=== PATIENT | male | born 1965 | race African-American/Black ===

== ENCOUNTER 2018-01-08 09:34 | Inpatient (IN) | payer OTHER ==
[2018-01-08 10:06] VITALS: BMI 28.4
--- NOTE | 2018-01-08 12:21 | HP ---
CIWA Score - CIWA Score Nausea/Vomitin-Mild Nausea/No Vomiting Muscle Tremors: 1-None Visible, but [place] Anxiety: 2 Agitation: 1-Slight > Activity Paroxysmal Sweats: 2 Orientation: 1-Uncertain about Date Tacttile Disturbances: 2-Mild Itch/Numbness/Burn Auditory Disturbances: 0-None Visual Disturbances: 0-None Headache: 2-Mild CIWA-Ar Total Score: 12 Admission [facility] - HPI Chief Complaint: Patient presents for ETOH withdrawal symptoms. Allergies/Adverse Reactions: Allergies Allergy/AdvReac Type Severity Reaction Status Date / Time No Known Allergies Allergy Verified 01/08/18 11:51 History of Present Illness: Patient presents for alcohol withdrawal symptoms. Patient started drinking at age 15. Drinks up to 2-3 pints of Vodka daily. Last drink this morning. Patient denies hx of seizures/blackouts. Patient last detox 11/2015 here at [facility]. Longest period of sobriety 6 months. Patient also smokes marijuana and crack/cocaine since age 19, amount varies. Last time he smoked was yesterday. PMH depression and anxiety. Denies SI/HI and suicide attempts. Exam Limitations: No Limitations - Ebola screening Have you traveled outside of the country in the last 21 days: No Have you had contact with anyone from an Ebola affected area: No Have you been sick,other than usual withdrawal symptoms: No Do you have a fever: No - Review of Systems Constitutional: Chills, Night Sweats, Changes in sleep, Unexplained wgt Loss EENT: reports: Nose Congestion Respiratory: reports: Productive cough (+productive cough with yellow sputum x one week. Denies fever and chest pain.) Cardiac: reports: No Symptoms Reported GI: reports: Diarrhea, Nausea, Poor Fluid Intake, Abdominal cramping : reports: No Symptoms Reported Musculoskeletal: reports: Back Pain, Muscle Pain Integumentary: reports: Sweating Neuro: reports: Headache, Numbness, Tingling, Tremors Endocrine: reports: Unexplained Weight Loss Hematology: reports: No Symptoms Reported Psychiatric: reports: Anxious, Depressed Patient History - Patient Medical History Hx Anemia: No Hx Asthma: No Hx Chronic Obstructive Pulmonary Disease (COPD): No Hx Cancer: No Hx Cardiac Disorders: No Hx Congestive Heart Failure: No Hx Hypertension: No Hx Hypercholesterolemia: No Hx Pacemaker: No HX Cerebrovascular Accident: No Hx Seizures: No Hx Dementia: No Hx Diabetes: No Hx Gastrointestinal Disorders: No Hx Liver Disease: No Hx Genitourinary Disorders: No Hx Sexually Transmitted Disorders: No Hx Renal Disease (ESRD): No Hx Thyroid Disease: No Hx Human Immunodeficiency Virus (HIV): No (09/20 last negative) Hx Hepatitis C: No Hx Depression: Yes Hx Suicide Attempt: No (DENIES) Hx Bipolar Disorder: No (PATIENT DENIES) Hx Schizophrenia: No - Patient Surgical History Past Surgical History: Yes Hx Neurologic Surgery: No Hx Cataract Extraction: No Hx Cardiac Surgery: No Hx Lung Surgery: No Hx Breast Surgery: No Hx Breast Biopsy: No Hx Abdominal Surgery: No Hx Appendectomy: Yes (32 years ago) Hx Cholecystectomy: No Hx Genitourinary Surgery: No Hx Orthopedic Surgery: No Anesthesia Reaction: No - PPD History Previous Implant?: Yes Documented Results: Negative w/proof Implanted On Prior [facility] Admission?: Yes Date: 12/02/15 Results: 0 mm PPD to be Administered?: Yes - Smoking Cessation Smoking history: Current every day smoker Have you smoked in the past 12 months: Yes Aproximately how many cigarettes per day: 7 Hx Chewing Tobacco Use: No Initiated information on smoking cessation: Yes 'Breaking Loose' booklet given: 01/08/18 - Substance & Tx. History Hx Alcohol Use: Yes Hx Substance Use: Yes Substance Use Type: Alcohol, Cocaine, Marijuana Hx Substance Use Treatment: Yes - Substances Abused Alcohol Route: Oral Frequency: Daily Amount used: 3 PINTS OF VODKA Age of first use: 15 Date of Last Use: 01/08/18 Crack Route: Smoking Frequency: Daily Amount used: $50 Age of first use: 15 Date of Last Use: 01/08/18 Family Disease History - Family Disease History Family History: Denies Admission Physical Exam BHS - Vital Signs Vital Signs: Vital Signs - 24 hr 01/08/18 10:02 Temperature 97.6 F Pulse Rate 101 H Respiratory 18 Rate Blood Pressure 134/83 - Physical General Appearance: Yes: Disheveled, Tremorous, Sweating, Anxious HEENTM: Yes: EOMI, Hearing grossly Normal, Normocephalic, HAI, Pharynx Normal, Nasal Congestion Respiratory: Yes: Chest Non-Tender, No Respiratory Distress, No Accessory Muscle Use, Rhonchi Neck: Yes: No masses,lesions,Nodules, Supple Breast: Yes: Breast Exam Deferred Cardiology: Yes: Regular Rhythm, Regular Rate, S1, S2 Abdominal: Yes: Normal Bowel Sounds, Non Tender, Soft Genitourinary: Yes: Within Normal Limits Back: Yes: Normal Inspection, Muscle Spasm Musculoskeletal: Yes: full range of Motion, Gait Steady, Back pain, Muscle Pain Extremities: Yes: Normal Inspection, Normal Range of Motion, Non-Tender, Tremors Neurological: Yes: manager ob II-XII NML intact, Alert, Motor Strength 5/5, Numbness, Depressed Affect Integumentary: Yes: Normal Color, Warm, Moist Lymphatic: Yes: Within Normal Limits - Diagnostic (1) Marijuana dependence Current Visit: Yes Status: Chronic (2) Cough Current Visit: Yes Status: Acute (3) Alcohol dependence with uncomplicated withdrawal Current Visit: Yes Status: Acute (4) Nicotine dependence Current Visit: Yes Status: Chronic Qualifiers: Nicotine product type: cigarettes Substance use status: uncomplicated Qualified Code(s): F17.210 - Nicotine dependence, cigarettes, uncomplicated (5) Cocaine dependence, continuous Current Visit: Yes Status: Chronic (6) Bipolar disorder Current Visit: Yes Status: Suspected Qualifiers: Active/Remission status: remission status unspecified Qualified Code(s): F31.9 - Bipolar disorder, unspecified Cleared for Admission [facility] - Detox or Rehab [facility] Level of Care: Medically Managed Detox Regimen/Protocol: Librium [facility] Breath Alcohol Content Breath Alcohol Content: 0.029 Urine Drug Screen - Results Drug Screen Negative: No Urine Drug Screen Results: THC-Marijuana, DEVIN-Cocaine, OPI-Opiates
[2018-01-08] MEDS ORDERED: MAGNESIUM HYDROX 2400MG/30ML ORAL SUSPENSION 30 ML CUP PO PRN (12:35)
[2018-01-08] MEDS ORDERED: MAGNESIUM CITRATE 300 ML BOTTLE PO PRN (12:35)
[2018-01-08] MEDS ORDERED: ACETAMINOPHEN 325 MG TABLET (FP) PO PRN (12:35)
[2018-01-08] MEDS ORDERED: LOPERAMIDE HCL 2 MG CAPSULE PO PRN (12:35)
[2018-01-08] MEDS ORDERED: IBUPROFEN 400 MG TABLET (FP) PO PRN (12:35)
[2018-01-08] MEDS ORDERED: MENTHOL/PHENOL 1 EACH UD MM PRN (12:35)
[2018-01-08] MEDS ORDERED: NICOTINE POLACRILEX 2 MG GUM BUC PRN (12:35)
[2018-01-08] MEDS ORDERED: hydrOXYzine PAMOATE 50 MG CAPSULE (FP) PO PRN (12:35)
[2018-01-08] MEDS ORDERED: P-EPHED 60MG/TRIPROLIDI 2.5MG TABLET PO PRN (12:35)
[2018-01-08] MEDS ORDERED: guaiFENesin/D-METHORPHAN HB 10 ML UNIT-DOSE CUPS PO PRN (12:35)
[2018-01-08] MEDS ORDERED: MAG HYDROX/AL HYDROX/SIMETH 30 ML UNIT-DOSE CUP PO PRN (12:35)
[2018-01-08] MEDS ORDERED: chlordiazePOXIDE HCL 25 MG CAPSULE PO ONE (12:40)
[2018-01-08] MEDS ORDERED: chlordiazePOXIDE HCL 25 MG CAPSULE PO PRN (12:40)
[2018-01-08] MEDS: AZITHROMYCIN 250 MG TABLET PO SCH (13:54)
[2018-01-08 17:36] LABS: URINE APPEARANCE CLEAR; URINE BILIRUBIN NEGATIVE (<2.0 mg/dL); URINE COLOR DKYELLOW; URINE GLUCOSE (UA) NEGATIVE (NEGATIVE); URINE KETONE NEGATIVE (NEGATIVE); URINE LEUK ESTERASE TRACE (NEGATIVE); URINE NITRITE NEGATIVE (NEGATIVE); URINE UROBILINOGEN 4.0 E.U/dl mg/dL (0.2-1.0)
[2018-01-08] MEDS: chlordiazePOXIDE HCL 25 MG CAPSULE PO SCH ×2 (17:46→22:47)
[2018-01-08 18:02] LABS: URINE PROTEIN 1+ (NEGATIVE)
[2018-01-08 18:07] LABS: EPI CELLS RARE /HPF (FEW); URINE BACTERIA RARE /hpf (NONE SEEN); URINE MUCUS RARE
[2018-01-08] MEDS ORDERED: MELATONIN 5 MG TABLETS PO PRN (22:00)
[2018-01-08] MEDS: THIAMINE HCL 100 MG TABLET (FP) PO SCH (22:47)
[2018-01-09] MEDS: chlordiazePOXIDE HCL 25 MG CAPSULE PO SCH ×4 (05:53→22:55)
[2018-01-09] MEDS ORDERED: cloNIDine HCL 0.1 MG TABLET PO ONE (07:44)
--- NOTE | 2018-01-09 08:00 | PN ---
[facility] Progress Note Note: inform by nurse patient bp is 148/103 no chest pain,no sob,no headache no history of hypertension anxious,tremor withdrawal symptom clonidine 0.1 mg po ordered vital signs monitoring continue detox
--- NOTE | 2018-01-09 09:48 | CONSULT ---
[facility] Psychiatric Consult - Data Date of interview: 01/09/18 Admission source: [facility] Identifying data: This is 52 years old male, single, homeless, father of one, unemployed, with no psychiatreic hospitalization history, Patient presents for alcohol withdrawal symptoms. Patient reports abusing Crack, Cannabis and Nicotine as well, seeking for detox. Substance Abuse History: Smoking history: Current every day smoker. Have you smoked in the past 12 months: Yes. Aproximately how many cigarettes per day: 7. Hx Chewing Tobacco Use: No. Initiated information on smoking cessation: Yes. 'Breaking Loose' booklet given: 01/08/18. - Substance & Tx. History. Hx Alcohol Use: Yes. Hx Substance Use: Yes. Substance Use Type: Alcohol, Cocaine , Marijuana. Hx Substance Use Treatment: Yes. - Substances Abused. Alcohol. Route: Oral. Frequency: Daily. Amount used: 3 PINTS OF VODKA. Age of first use: 15. Date of Last Use: 01/08/18. Crack. Route: Smoking. Frequency: Daily. Amount used: $50. Age of first use: 15. Date of Last Use: 01/08/18 Medical History: Denies significant medical issues. Syncope history per computer Psychiatric History: As per computer there is a history of Bipoolar duisordser, patient denies past psychiatric history. Physical/Sexual Abuse/Trauma History: Denies Additional Comment: Observation. Detox Unit Care Protocol. Mental Status Exam - Mental Status Exam Alert and Oriented to: Person Cognitive Function: Fair Patient Appearance: Unkempt Mood: Sad Affect: Flat Patient Behavior: Sedated Speech Pattern: Delayed Voice Loudness: Mildly Soft/Quiet Thought Process: Circumstantial Thought Disorder: Being Controlled Hallucinations: Denies Suicidal Ideation: Denies Homicidal Ideation: Denies Insight/Judgement: Fair Sleep: Difficulty falling asleep Appetite: Weight loss Muscle strength/Tone: Mild Hypotonicity Gait/Station: Shuffling Additional Comments: Observation. Detox Unit Care Protocol. Psychiatric Findings - Problem List ([place] 1, 2,3) (1) Alcohol dependence with uncomplicated withdrawal Current Visit: Yes Status: Acute (2) Cocaine dependence, continuous Current Visit: Yes Status: Chronic (3) Marijuana dependence Current Visit: Yes Status: Chronic (4) Nicotine dependence Current Visit: Yes Status: Chronic Qualifiers: Nicotine product type: cigarettes Substance use status: uncomplicated Qualified Code(s): F17.210 - Nicotine dependence, cigarettes, uncomplicated (5) Bipolar disorder Current Visit: Yes Status: Suspected Qualifiers: Active/Remission status: remission status unspecified Qualified Code(s): F31.9 - Bipolar disorder, unspecified (6) Alcohol dependence, continuous Current Visit: No Status: Acute (7) Syncope Current Visit: No Status: Acute - Initial Treatment Plan Initial Treatment Plan: Observation. Detox Unit Care Protocol.
[2018-01-09 10:34] LABS: HEMATOCRIT 45.5 % (35.4-49); HEMOGLOBIN 15.3 GM/dL (11.7-16.9); MCH 31.8 pg (25.7-33.7); MCHC 33.6 g/dl (32.0-35.9); MEAN CELL VOLUME 94.7 fl (80-96); MEAN PLT VOLUME 7.9 fl (7.5-11.1); PLATELET COUNT 263 K/MM3 (134-434); RDW 13.6 % (11.9-15.9); WHITE BLOOD COUNT 6.1 K/mm3 (4.0-10.0)
[2018-01-09 10:45] LABS: ALBUMIN 3.4 g/dl (3.4-5.0); ANION GAP 8 (8-16); BLOOD UREA NITROGEN 11 mg/dL (7-18); CALCIUM 8.7 mg/dL (8.5-10.1); CHLORIDE 104 mmol/L (98-107); CO2 29 mmol/L (21-32); GLUCOSE,RANDOM 85 mg/dL (74-106); SODIUM 141 mmol/L (136-145)
[2018-01-09] MEDS: PRENATAL VITAMINS W/ FOLIC ACID TABLET (FP) PO SCH (10:45)
[2018-01-09] MEDS: AZITHROMYCIN 250 MG TABLET PO SCH (10:45)
[2018-01-09 10:48] LABS: ALK PHOS 76 U/L (45-117); BILIRUBIN,TOTAL 1.1 mg/dL (0.2-1.0); CREATININE 1.1 mg/dL (0.7-1.3); SGOT/AST 44 U/L (15-37); SGPT/ALT 34 U/L (12-78); TOT PROT 6.5 g/dl (6.4-8.2)
--- NOTE | 2018-01-09 11:31 | EKG ---
Test Reason : Blood Pressure : / mmHG Vent. Rate : 094 BPM Atrial Rate : 094 BPM P-R Int : 176 ms QRS Dur : 086 ms QT Int : 378 ms P-R-T Axes : 069 -06 033 degrees QTc Int : 472 ms NORMAL SINUS RHYTHM POSSIBLE LEFT ATRIAL ENLARGEMENT NONSPECIFIC T WAVE ABNORMALITY PROLONGED QT ABNORMAL ECG NO PREVIOUS ECGS AVAILABLE Confirmed by CADEN SHAFFER MD ([id number]) on 01/09/2018 11:31:15 AM Referred By: Dread Yan Confirmed By:CADEN SHAFFER MD
--- NOTE | 2018-01-09 12:16 | PN ---
[facility] CIWA - CIWA Score Nausea/Vomitin-No Nausea/No Vomiting Muscle Tremors: 4-Moderate,w/Arms Extend Anxiety: 4-Mod. Anxious/Guarded Agitation: 3 Paroxysmal Sweats: 1-Minimal Palms Moist Orientation: 0-Oriented Tacttile Disturbances: 0-None Auditory Disturbances: 0-None Visual Disturbances: 0-None Headache: 0-None Present CIWA-Ar Total Score: 12 BHS Progress Note (SOAP) Subjective: sweat tremor anxiety restlessness irritable agitation Objective: 01/09/18 12:22 Vital Signs Temperature 97.1 F L 01/09/18 09:29 Pulse Rate 82 01/09/18 09:29 Respiratory Rate 16 01/09/18 09:29 Blood Pressure 133/81 01/09/18 09:29 O2 Sat by Pulse Oximetry (%) Laboratory Last Values WBC 6.1 K/mm3 (4.0-10.0) 01/09/18 07:40 RBC 4.80 M/mm3 (4.00-5.60) 01/09/18 07:40 Hgb 15.3 GM/dL (11.7-16.9) 01/09/18 07:40 Hct 45.5 % (35.4-49) 01/09/18 07:40 MCV 94.7 fl (80-96) 01/09/18 07:40 MCH 31.8 pg (25.7-33.7) 01/09/18 07:40 MCHC 33.6 g/dl (32.0-35.9) 01/09/18 07:40 RDW 13.6 % (11.9-15.9) 01/09/18 07:40 Plt Count 263 K/MM3 (134-434) 01/09/18 07:40 MPV 7.9 fl (7.5-11.1) 01/09/18 07:40 Sodium 141 mmol/L (136-145) 01/09/18 07:40 Potassium 4.0 mmol/L (3.5-5.1) 01/09/18 07:40 Chloride 104 mmol/L (98-107) 01/09/18 07:40 Carbon Dioxide 29 mmol/L (21-32) 01/09/18 07:40 Anion Gap 8 (8-16) 01/09/18 07:40 BUN 11 mg/dL (7-18) 01/09/18 07:40 Creatinine 1.1 mg/dL (0.7-1.3) 01/09/18 07:40 Creat Clearance w eGFR > 60 (>60) 01/09/18 07:40 Random Glucose 85 mg/dL (74-106) D 01/09/18 07:40 Calcium 8.7 mg/dL (8.5-10.1) 01/09/18 07:40 Total Bilirubin 1.1 mg/dL (0.2-1.0) H 01/09/18 07:40 AST 44 U/L (15-37) H D 01/09/18 07:40 ALT 34 U/L (12-78) D 01/09/18 07:40 Alkaline Phosphatase 76 U/L (45-117) 01/09/18 07:40 Total Protein 6.5 g/dl (6.4-8.2) 01/09/18 07:40 Albumin 3.4 g/dl (3.4-5.0) 01/09/18 07:40 Urine Color Dkyellow 01/08/18 16:45 Urine Appearance Clear 01/08/18 16:45 Urine pH 5.0 (5.0-8.0) 01/08/18 16:45 Ur Specific Shannon 1.027 (1.001-1.035) 01/08/18 16:45 Urine Protein 1+ (NEGATIVE) H 01/08/18 16:45 Urine Glucose (UA) Negative (NEGATIVE) 01/08/18 16:45 Urine Ketones Negative (NEGATIVE) 01/08/18 16:45 Urine Blood 2+ (NEGATIVE) H 01/08/18 16:45 Urine Nitrite Negative (NEGATIVE) 01/08/18 16:45 Urine Bilirubin Negative (<2.0 mg/dL) 01/08/18 16:45 Urine Urobilinogen 4.0 e.u/dl mg/dL (0.2-1.0) 01/08/18 16:45 Ur Leukocyte Esterase Trace (NEGATIVE) 01/08/18 16:45 Urine WBC (Auto) 9 /hpf (3-5) 01/08/18 16:45 Urine RBC (Auto) 11 /hpf (0-3) 01/08/18 16:45 Ur Epithelial Cells Rare /HPF (FEW) 01/08/18 16:45 Urine Bacteria Rare /hpf (NONE SEEN) 01/08/18 16:45 Urine Mucus Rare 01/08/18 16:45 lab noted Assessment: 01/09/18 12:22 withdrawal sx Plan: continue detox
[2018-01-09] MEDS ORDERED: ALBUTEROL SO4 8 GM HFA INHALER IH PRN (16:03)
[2018-01-09] MEDS ORDERED: ALBUTEROL SO4 0.083% IH SOL 2.5 MG/3 ML VIAL.NEB. NEB PRN (16:03)
[2018-01-09] MEDS ORDERED: METOPROLOL TARTRATE 50 MG TABLET (FP) PO ONE (16:30)
[2018-01-09] MEDS: LORATADINE 10 MG TABLET PO SCH (22:54)
[2018-01-09] MEDS: THIAMINE HCL 100 MG TABLET (FP) PO SCH (22:54)
[2018-01-09] MEDS: METOPROLOL TARTRATE 50 MG TABLET (FP) PO SCH (22:55)
[2018-01-10] MEDS: chlordiazePOXIDE HCL 25 MG CAPSULE PO SCH ×2 (06:50→10:11)
[2018-01-10] MEDS: METOPROLOL TARTRATE 50 MG TABLET (FP) PO SCH ×2 (10:10→22:28)
[2018-01-10] MEDS: AZITHROMYCIN 250 MG TABLET PO SCH (10:11)
[2018-01-10] MEDS: PRENATAL VITAMINS W/ FOLIC ACID TABLET (FP) PO SCH (10:11)
--- NOTE | 2018-01-10 14:55 | PN ---
[facility] CIWA - CIWA Score Nausea/Vomitin-No Nausea/No Vomiting (says feeling weak) Muscle Tremors: 2 Anxiety: 2 Agitation: 1-Slight > Activity Paroxysmal Sweats: No Perspiration Orientation: 0-Oriented Tacttile Disturbances: 0-None Auditory Disturbances: 0-None Visual Disturbances: 0-None Headache: 1-Very Mild CIWA-Ar Total Score: 6
--- NOTE | 2018-01-10 14:58 | PN ---
[facility] Progress Note (SOAP) Subjective: pt states feeling weak and tired, laying in bed- says been here for 1 day Objective: 01/10/18 14:56 CBC, BMP 01/09/18 07:40 01/09/18 07:40 Vital Signs - 24 hr 01/09/18 01/10/18 01/10/18 17:53 03:30 06:15 Temperature 97.1 F L 97.9 F Pulse Rate 77 73 Respiratory 18 18 18 Rate Blood Pressure 121/86 133/76 01/10/18 01/10/18 11:19 14:23 Temperature 98.1 F 97.7 F Pulse Rate 75 78 Respiratory 18 2 L Rate Blood Pressure 125/88 122/91 VSS PE grossly nl Assessment: 01/10/18 14:56 ass/plan: alcohol detox #1- pt states feeling weak and tired, pt to continue on detox protocol. f/u with nursing as needed
[2018-01-10] MEDS: chlordiazePOXIDE 5 MG CAPSULE PO SCH ×2 (17:56→22:26)
[2018-01-10] MEDS: THIAMINE HCL 100 MG TABLET (FP) PO SCH (22:27)
[2018-01-10] MEDS: LORATADINE 10 MG TABLET PO SCH (22:28)
[2018-01-11] MEDS: chlordiazePOXIDE 5 MG CAPSULE PO SCH ×2 (05:07→10:43)
[2018-01-11 09:17] VITALS: BP 126/90; PULSE 74; TEMP 98.1
--- NOTE | 2018-01-11 10:30 | PN ---
S Progress Note (SOAP) Subjective: alert,irritable,anxious,interrupted sleep,anxious Objective: 01/11/18 10:29 Vital Signs Temperature 98.1 F 01/11/18 09:17 Pulse Rate 74 01/11/18 09:17 Respiratory Rate 18 01/11/18 09:17 Blood Pressure 126/90 01/11/18 09:17 O2 Sat by Pulse Oximetry (%) Assessment: 01/11/18 10:29 withdrawal symptom Plan: continue detox
--- NOTE | 2018-01-11 10:33 | PN ---
[facility] Progress Note Note: patient did not want to complete treatment,declined to give reason,all attempts to convince patient to stay with no avail, seen by counselor,signed release amnery
--- NOTE | 2018-01-11 10:39 | DS ---
[facility] Detox Discharge Summary Admission Date: 01/08/18 Discharge Date: 01/11/18 - History Present History: Alcohol Dependence, Cannabis Dependence, Cocaine Dependence Additional Comments: patient did not want to complete treatment,all attempt to convince patient to stay with no avail, declined to give the reason,signed release ama, Pertinent Past History: bipolar disorder - Physical Exam Results Vital Signs: Vital Signs Temperature 98.1 F 01/11/18 09:17 Pulse Rate 74 01/11/18 09:17 Respiratory Rate 18 01/11/18 09:17 Blood Pressure 126/90 01/11/18 09:17 O2 Sat by Pulse Oximetry (%) Pertinent Admission Physical Exam Findings: withdrawal signs and symptoms Laboratory Last Values WBC 6.1 K/mm3 (4.0-10.0) 01/09/18 07:40 RBC 4.80 M/mm3 (4.00-5.60) 01/09/18 07:40 Hgb 15.3 GM/dL (11.7-16.9) 01/09/18 07:40 Hct 45.5 % (35.4-49) 01/09/18 07:40 MCV 94.7 fl (80-96) 01/09/18 07:40 MCH 31.8 pg (25.7-33.7) 01/09/18 07:40 MCHC 33.6 g/dl (32.0-35.9) 01/09/18 07:40 RDW 13.6 % (11.9-15.9) 01/09/18 07:40 Plt Count 263 K/MM3 (134-434) 01/09/18 07:40 MPV 7.9 fl (7.5-11.1) 01/09/18 07:40 Sodium 141 mmol/L (136-145) 01/09/18 07:40 Potassium 4.0 mmol/L (3.5-5.1) 01/09/18 07:40 Chloride 104 mmol/L (98-107) 01/09/18 07:40 Carbon Dioxide 29 mmol/L (21-32) 01/09/18 07:40 Anion Gap 8 (8-16) 01/09/18 07:40 BUN 11 mg/dL (7-18) 01/09/18 07:40 Creatinine 1.1 mg/dL (0.7-1.3) 01/09/18 07:40 Creat Clearance w eGFR > 60 (>60) 01/09/18 07:40 Random Glucose 85 mg/dL (74-106) D 01/09/18 07:40 Calcium 8.7 mg/dL (8.5-10.1) 01/09/18 07:40 Total Bilirubin 1.1 mg/dL (0.2-1.0) H 01/09/18 07:40 AST 44 U/L (15-37) H D 01/09/18 07:40 ALT 34 U/L (12-78) D 01/09/18 07:40 Alkaline Phosphatase 76 U/L (45-117) 01/09/18 07:40 Total Protein 6.5 g/dl (6.4-8.2) 01/09/18 07:40 Albumin 3.4 g/dl (3.4-5.0) 01/09/18 07:40 Urine Color Dkyellow 01/08/18 16:45 Urine Appearance Clear 01/08/18 16:45 Urine pH 5.0 (5.0-8.0) 01/08/18 16:45 Ur Specific [place] 1.027 (1.001-1.035) 01/08/18 16:45 Urine Protein 1+ (NEGATIVE) H 01/08/18 16:45 Urine Glucose (UA) Negative (NEGATIVE) 01/08/18 16:45 Urine Ketones Negative (NEGATIVE) 01/08/18 16:45 Urine Blood 2+ (NEGATIVE) H 01/08/18 16:45 Urine Nitrite Negative (NEGATIVE) 01/08/18 16:45 Urine Bilirubin Negative (<2.0 mg/dL) 01/08/18 16:45 Urine Urobilinogen 4.0 e.u/dl mg/dL (0.2-1.0) 01/08/18 16:45 Ur Leukocyte Esterase Trace (NEGATIVE) 01/08/18 16:45 Urine WBC (Auto) 9 /hpf (3-5) 01/08/18 16:45 Urine RBC (Auto) 11 /hpf (0-3) 01/08/18 16:45 Ur Epithelial Cells Rare /HPF (FEW) 01/08/18 16:45 Urine Bacteria Rare /hpf (NONE SEEN) 01/08/18 16:45 Urine Mucus Rare 01/08/18 16:45 RPR Titer Nonreactive (NONREACTIVE) 01/09/18 07:40 HIV 1&2 Antibody Screen Negative 01/09/18 07:40 HIV P24 Antigen Negative 01/09/18 07:40 Vital Signs Temperature 98.1 F 01/11/18 09:17 Pulse Rate 74 01/11/18 09:17 Respiratory Rate 18 01/11/18 09:17 Blood Pressure 126/90 01/11/18 09:17 O2 Sat by Pulse Oximetry (%) - Treatment Patient has Accepted a Rehab Referral to: declined - Medication Discharge Medications: Ambulatory Orders NK [No Known Home Medication] 11/26/13 - Diagnosis (1) Alcohol dependence with uncomplicated withdrawal Current Visit: Yes Status: Acute (2) Cocaine dependence, continuous Current Visit: Yes Status: Chronic (3) Marijuana dependence Current Visit: Yes Status: Chronic (4) Nicotine dependence Current Visit: Yes Status: Chronic Qualifiers: Nicotine product type: cigarettes Substance use status: uncomplicated Qualified Code(s): F17.210 - Nicotine dependence, cigarettes, uncomplicated (5) Bipolar disorder Current Visit: Yes Status: Suspected Qualifiers: Active/Remission status: remission status unspecified Qualified Code(s): F31.9 - Bipolar disorder, unspecified - AMA Did Patient Leave Against Medical Advice: Yes
[2018-01-11] MEDS: PRENATAL VITAMINS W/ FOLIC ACID TABLET (FP) PO SCH (10:43)
[2018-01-11] MEDS: METOPROLOL TARTRATE 50 MG TABLET (FP) PO SCH (10:43)
[2018-01-11] MEDS: AZITHROMYCIN 250 MG TABLET PO SCH (10:43)
[2018-01-11] MEDS ORDERED: chlordiazePOXIDE HCL 10 MG CAPSULE PO SCH (17:00)
== END 2018-01-11 10:15 | disposition left against medical advice (07) | DRG 770 ==
LOC: YASAS 09:34 → Y6N 12:50
PROVIDERS: ADMIT Surgery; ATTEND Surgery
PROC: HZ2ZZZZ Detoxification Services for Substance Abuse Treatment (ICD-10-PCS; principal; 2018-01-08)
DX: F10.230 Alcohol dependence with withdrawal, uncomplicated (principal); F14.20 Cocaine dependence, uncomplicated; F12.20 Cannabis dependence, uncomplicated; F17.210 Nicotine dependence, cigarettes, uncomplicated; F31.9 Bipolar disorder, unspecified; Z59.0 Homelessness
CPT/HCPCS: 36415; 71046-TC-FY; 80053; 81003; 81015; 85027; 86593; 87389; 93005; 93010; J0735